=== PATIENT | female | born 1955 | race Caucasian/White ===

== ENCOUNTER 2016-09-04 00:26 | Emergency (ER) | payer OTHER ==
[~2016-09-04] VITALS: Ht 170.2 cm; Wt 81.1 kg
[2016-09-04 00:29] VITALS: TEMP 36.5; Ht 170.2 cm; Wt 81.1 kg
[2016-09-04] MEDS ORDERED: DOXYCYCLINE HYCLATE 100 MG CAP PO STA (00:40)
[2016-09-04] MEDS ORDERED: DOXY100C76 PO (00:43)
[2016-09-04] MEDS ORDERED: LEVO112T2 PO (00:45)
[2016-09-04] MEDS ORDERED: CYCL5TAB PO (00:46)
[2016-09-04] MEDS ORDERED: CLR10 PO (00:46)
[2016-09-04] MEDS ORDERED: SIMV10TA2 PO (00:47)
[2016-09-04] MEDS ORDERED: LANS30CA63 PO (00:47)
[2016-09-04] MEDS ORDERED: estrace cream TOP (00:49)
[2016-09-04] MEDS ORDERED: POLY335019 PO (00:51)
[2016-09-04] MEDS ORDERED: PSYL0.524 PO (00:51)
[2016-09-04] MEDS ORDERED: MULT-1092 PO (00:52)
[2016-09-04 01:22] VITALS: BP 151/85; PULSE 57; O2SAT 98
--- NOTE | 2016-09-04 04:13 | EMERGENCY ROOM VISIT NOTE ---
History Report prepared by Perla: Iris Lemus Under the Supervision of: Dr. Danielito Mann M.D. First contact with patient: 00:36 Chief Complaint: BITE Stated Complaint: PAIN,SWELLING IN LEFT LEG FROM BUG BITE History of Present Illness The patient is a 61 year old female who presents to the Emergency Room with complaints of an episode of a bug bite on her leg that was noticed 14 hours ago. The patient states that she was in an area that had ticks, but she denies seeing any bug or knowing what bug bite her. She states that this evening she started to feel swelling and pain in her leg. She states that the pain is a burning pain that shoots up her leg into her knee joint. She also notes a "fierce" itch with the bite. The patient states that she took Tylenol and her normal allergy medication with no relief. She denies taking Benadryl because she states her other medication is an antihistamine as well and she didn't know if it would be too much. The patient currently rates her pain as a 6/10 in severity. Source of History: patient Onset: 14 hours ago Position: leg Symptom Intensity: 6/10 Quality: burning Timing: other (episode) Note: The patient complains of swelling, itchiness, and knee joint pain. Review of Systems See HPI for pertinent positives & negatives. A total of 10 systems reviewed and were otherwise negative. Past Medical & Surgical Medical Problems: (1) History of stomach ulcers (2) Hx of bronchitis (3) Hypertension Surgical Problems: (1) Hx of cholecystectomy Family History Cancer Diabetes mellitus Heart disease Hypertension Lung disease Social History Smoking Status: Never Smoker Alcohol Use: none Drug Use: none Marital Status: Housing Status: lives with significant other Occupation Status: employed Current/Historical Medications Scheduled Doxycycline Monohydrate (Monodox), 100 MG PO BID Lansoprazole (Prevacid), 30 MG PO DAILY Levothyroxine Sodium (Synthroid), 112 MCG PO DAILY Loratadine (Claritin), 10 MG PO DAILY Multiple Vitamins W/ Minerals (Centrum Silver 50+Women), 1 TAB PO DAILY Polyethylene Glycol 3350 (Miralax), 17 GM PO DAILY Psyllium (Metamucil), 3 DOSE PO DAILY Simvastatin (Zocor), 10 MG PO QPM Scheduled PRN Cyclobenzaprine Hcl (Flexeril), 5 MG PO BID PRN for fibromyalgia [estrace cream], 1 APPLN TOP 3XWK PRN for dryness Allergies Coded Allergies: Clindamycin (Unverified Allergy, Unknown, swelling, 09/04/16) Codeine (Unverified Allergy, Unknown, rash, 09/04/16) Iodinated Diagnostic Agents (Unverified Allergy, Unknown, hives, 09/04/16) Metronidazole (Unverified Allergy, Unknown, abdominal pain, 09/04/16) Morphine (Unverified Allergy, Unknown, sensitivity, 09/04/16) Nitroglycerin (Unverified Allergy, Unknown, sensitivity, 09/04/16) Prochlorperazine (Unverified Allergy, Unknown, shock, 09/04/16) Tetanus Toxoid (Unverified Allergy, Unknown, serum reaction, 09/04/16) Physical Exam Vital Signs Date Time Temp Pulse Resp B/P (MAP) Pulse Ox O2 Delivery O2 Flow Rate FiO2 09/04/16 01:22 57 18 151/85 98 09/04/16 00:29 36.5 65 18 147/83 98 Room Air Physical Exam GENERAL: Patient is a healthy-appearing well-nourished HEAD: Normocephalic atraumatic EYES: Ocular movements intact pupils equal and react to light OROPHARYNX mucous membranes are moist no exudates present no erythema or edema present NECK: Supple no nuchal rigidity CHEST: Good equal expansion LUNGS: Clear and equal to auscultation CARDIAC: Normal S1 and S2 ABDOMEN: Soft nontender no guarding BACK: No CVA tenderness EXTREMITIES: No pain upon palpation normal muscle strength in all groups no clubbing cyanosis or edema. Reddened area that is the size of a dime on the anterior tibia, slight rash extending out 2 inches by 2 inches, no presence of an abscess, no pain to posterior calf. NEURO: Patient is following commands and answering questions appropriately. Alert and oriented x3 Cranial Nerves 2-12 grossly intact Medical Decision & Procedures Medications Administered Medications (Trade) Dose Ordered Sig/Suzanna Route Start Time Stop Time Status Last Admin Dose Admin Doxycycline Hyclate (Vibramycin Cap) 100 mg ONE STAT PO 09/04/16 00:40 09/04/16 00:42 DC 09/04/16 00:48 100 MG Diphenhydramine HCl (Benadryl Cap) 50 mg NOW STAT PO 09/04/16 00:40 09/04/16 00:42 DC 09/04/16 00:48 50 MG ED Course 0037: Past medical records reviewed. The patient was evaluated in room A3. A complete history and physical examination was performed. I discussed results and treatment plan with the patient. She verbalizes agreement and understanding. The patient is ready to be discharged. 0040: Ordered Benadryl Cap 50 mg PO, Vibramycin Cap 100 mg PO. Medical Decision Medication Reconciliation: I attest that I have personally reviewed the patient' s current medication list Blood Pressure Screening: Patient was found to have an elevated blood pressure and was referred to their primary care doctor for recheck and further treatment Differential diagnoses include insect bite, insect sting, cellulitis, DVT. This 61-year-old female who presents emergency department complaining of insect bite. The patient has a slight rash around the insect bite therefore I'll place her on doxycycline. She has no evidence of pain to the posterior calf that I do not feel that this is a DVT. Patient will follow-up with her primary care physician and was in agreement with the treatment plan. Impression Primary Impression: Hypertension Additional Impression: Insect bite Scribe Attestation The scribe's documentation has been prepared under my direction and personally reviewed by me in its entirety. I confirm that the note above accurately reflects all work, treatment, procedures, and medical decision making performed by me. Departure Information Dispostion Home / Self-Care Prescriptions Doxycycline Monohydrate (Monodox) 100 Mg Cap 100 MG PO BID for 14 Days, #28 CAP Prov: Danielito Mann MD 09/04/16 Referrals No Doctor, Assigned (PCP) Forms HOME CARE DOCUMENTATION FORM, IMPORTANT VISIT INFORMATION Patient Instructions My [facility] Additional Instructions You were found to have an elevated blood pressure today (>120 sytolic or >90 diastolic). Per medicare guidelines, you need to follow up with this blood pressure screening with your Primary Care Physician (PCP). For a new PCP call [phone]. You have been examined and treated today on an emergency basis only. This is not a substitute for, or an effort to provide, complete comprehensive medical care. It is impossible to recognize and treat all injuries or illnesses in a single emergency department visit. It is therefore important that you follow up closely with your PCP. Call as soon as possible for an appointment. Thank you for your time and consideration. I look forward to speaking with you again soon. Please don't hesitate to call us if you have any questions. Problem Qualifiers Primary Impression: Hypertension Hypertension type: unspecified Qualified Codes: I10 - Essential (primary) hypertension Additional Impression: Insect bite Encounter type: initial encounter Qualified Codes: W57.XXXA - Bitten or stung by nonvenomous insect and other nonvenomous arthropods, initial encounter
== END 2016-09-04 01:24 | disposition home or self-care (01) ==
LOC: C.EDB 00:27 → C.EDA 01:24
DX: S80.862A Insect bite (nonvenomous), left lower leg, initial encounter (principal); W57.XXXA Bitten or stung by nonvenomous insect and other nonvenomous arthropods, initial encounter; Y92.89 Other specified places as the place of occurrence of the external cause; I10 Essential (primary) hypertension; Z80.9 Family history of malignant neoplasm, unspecified; Z83.3 Family history of diabetes mellitus; Z82.49 Family history of ischemic heart disease and other diseases of the circulatory system; Z83.6 Family history of other diseases of the respiratory system; Z79.899 Other long term (current) drug therapy